=== PATIENT | female | born 1965 | race Hispanic/Latino ===

== ENCOUNTER 2024-01-04 18:25 | Emergency (ER) | payer BC, OTHER ==
[~2024-01-04] VITALS: Ht 154.9 cm; Wt 72.6 kg
[~2024-01-04 18:25] MED LIST: ASPI-556 PO; BIFI460C PO; CHOL100044 PO; LISI20TA24 PO; METF-444 PO
[2024-01-04 18:27] VITALS: BP 156/81; PULSE 86; RESP 20
[2024-01-04 20:01] LABS: RAPID GROUP A STREP negative (NEGATIVE)
[2024-01-04 20:11] LABS: INFLUENZA TYPE A Negative For Type A (NEGATIVE); INFLUENZA TYPE B Negative For Type B (NEGATIVE)
[2024-01-04 20:35] LABS: COVID19 (SARS ANTIGEN RAPID) PRESUMPTIVE NEGATIVE (NEGATIVE)
[2024-01-04] MEDS ORDERED: BROM118S48 PO (21:17)
== END 2024-01-04 21:33 | disposition home or self-care (01) ==
LOC: EDH 18:25
DX: B34.9 Viral infection, unspecified (principal); Z20.822 Contact with and (suspected) exposure to COVID-19; H61.21 Impacted cerumen, right ear; E11.9 Type 2 diabetes mellitus without complications; I10 Essential (primary) hypertension; Z79.899 Other long term (current) drug therapy; Z79.82 Long term (current) use of aspirin; Z90.711 Acquired absence of uterus with remaining cervical stump; Z90.49 Acquired absence of other specified parts of digestive tract
CPT/HCPCS: 71045; 87426; 87804; 87880